=== PATIENT | female | born 1940 | race Caucasian/White ===

== ENCOUNTER 2017-02-06 19:30 | Emergency (ER) | payer MEDICARE ==
[~2017-02-06] VITALS: Ht 157.5 cm; Wt 113.4 kg
--- NOTE | 2017-02-06 19:54 | NUR ---
bb self; bilat lower extremity swelling x 1yr. AWAITING MD ORDER
--- NOTE | 2017-02-06 20:47 | NUR ---
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
--- NOTE | 2017-02-06 21:21 | NUR ---
APPLIED WOUND CARE ON BLE
--- NOTE | 2017-02-06 21:54 | NUR ---
Patient discharged to home in stable condition. Written and verbal after care instructions given. Patient verbalizes understanding of instruction.
[2017-02-06 21:55] VITALS: BP 128/81
== END 2017-02-06 22:34 | disposition home or self-care (01) ==
LOC: ER 19:37
DX: R60.9 Edema, unspecified (principal); M25.512 Pain in left shoulder; Z88.2 Allergy status to sulfonamides
CPT/HCPCS: 73030; 99284; A4606; Z7610